=== PATIENT | male | born 1950 | race African-American/Black ===

== ENCOUNTER 2022-04-03 13:07 | Inpatient (IN) | payer OTHER, MEDICAID ==
[~2022-04-03] VITALS: Ht 185.4 cm; Wt 65.7 kg
[2022-04-03 14:30] LABS: BASOPHILS % 0.8 % (0.0-2.0); EOSINOPHILS % 1.5 % (0.0-5.0); HEMATOCRIT. 45.6 % (42.0-52.0); HEMOGLOBIN. 15.3 g/dL (14.0-18.0); LYMPHOCYTES % 30.6 % (20.0-50.0); MEAN CORPUSCULAR HEMOGLOBIN 30.8 pg (28.0-32.0); MEAN CORPUSCULAR VOLUME 92.2 fL (80.0-94.0); MEAN PLATELET VOLUME 8.5 fl (7.4-10.4); MONOCYTES % 7.1 % (2.0-8.0); PLATELET 253 x1000/uL (130-400); RED BLOOD CELL COUNT 4.95 mill/uL (4.7-6.1); RED CELL DISTRIBUTION WIDTH 13.9 % (11.6-14.6)
[2022-04-03 14:33] LABS: CHLORIDE 101 mEq/L (98-107)
[2022-04-03 14:44] LABS: ETHANOL BLOOD < 10 mg/dL
[2022-04-03 20:12] LABS: CLARITY URINE CLEAR (CLEAR); COLOR URINE YELLOW (YELLOW); KETONES URINE NEGATIVE (NEGATIVE); LEUKOCYTE ESTERASE URINE NEGATIVE (NEGATIVE); NITRITE URINE NEGATIVE (NEGATIVE); OCCULT BLOOD URINE NEGATIVE (NEGATIVE); PH URINE 5.5 (4.5-8.0); PROTEIN URINE NEGATIVE (NEGATIVE); SPECIFIC GRAVITY URINE 1.006 (1.005-1.030); UROBILINOGEN URINE 0.2 E.U./dL (0.2-1.0)
[2022-04-03 20:25] LABS: *AMPHETAMINES SCREEN URINE NEGATIVE (NEGATIVE); *BARBITURATES SCREEN URINE NEGATIVE (NEGATIVE); *BENZODIAZEPINES SCREEN URINE NEGATIVE (NEGATIVE); *COCAINE SCREEN URINE NEGATIVE (NEGATIVE); CANNABINOID URINE SCREEN NEGATIVE (NEGATIVE); METHADONE URINE SCREEN NEGATIVE (NEGATIVE); OPIATES URINE SCREEN NEGATIVE (NEGATIVE); PHENCYCLIDINE URINE SCREEN NEGATIVE (NEGATIVE)
[2022-04-04] MEDS: ENOXAPARIN 30MG/0.3ML SYR SUBCUT SCH ×3 (10:00→19:31)
[2022-04-04] MEDS ORDERED: LIP40 MT (19:31)
[2022-04-04] MEDS ORDERED: ASPI-1406 MT (19:31)
[2022-04-04] MEDS ORDERED: DEXTROSE 50% WATER 50ML SYRINGE IV PRN (19:45)
[2022-04-04] MEDS ORDERED: INSULIN LISPRO 100 UNITS/ML SUBCUT SCH (21:00)
[2022-04-04] MEDS ORDERED: BLOOD SUGAR DIAGNOSTIC STRIP TEST SCH (21:00)
[2022-04-04] MEDS ORDERED: ATORVASTATIN CALCIUM 40MG TABLET PO SCH (21:00)
[2022-04-04 23:00] VITALS: BP 136/66
[2022-04-05] MEDS ORDERED: ASPIRIN 81MG TABLET PO SCH (09:00)
== END 2022-04-04 23:00 | disposition home or self-care (01) | DRG 69 ==
LOC: ER 13:07 → EDBEDREQTM 14:50 → MICUSO 15:57 → EDBEDREQ 15:58 → EDBEDREQTM 15:58
PROVIDERS: ADMIT Internal Medicine; ATTEND Internal Medicine
DX: G45.9 Transient cerebral ischemic attack, unspecified (principal); E11.65 Type 2 diabetes mellitus with hyperglycemia; F17.210 Nicotine dependence, cigarettes, uncomplicated; I11.9 Hypertensive heart disease without heart failure; I44.4 Left anterior fascicular block
CPT/HCPCS: 36415; 70551; 71045; 80053; 80305; 80320; 81003; 82962; 84484; 85025; 93005; 99291; J1650; J1815; G0480